=== PATIENT | female | born 1950 | race Caucasian/White ===

== ENCOUNTER 2018-10-02 08:22 | Inpatient (IN) | payer MEDICARE, MEDICAID ==
[2018-09-17 16:45] LABS: BASOPHILS % (AUTO) 0.6 % (0-1); EOSINOPHILS # (AUTO) 0.2 X10'3 (0-0.9); EOSINOPHILS % (AUTO) 3.4 % (0-6); LYMPHOCYTES # (AUTO) 1.1 X10'3 (1.1-4.8); LYMPHOCYTES % (AUTO) 16.2 % (21-51); MEAN CORPUSCULAR HEMOGLOBIN 32.2 PG (27.0-31.0); MEAN CORPUSCULAR HGB CONC 33.5 % (33.0-36.5); MEAN PLATELET VOLUME 6.8 FL (7.4-10.4); MONOCYTES # (AUTO) 0.5 X10'3 (0-0.9); MONOCYTES % (AUTO) 7.5 % (2-12); NEUTROPHILS # (AUTO) 4.9 X10'3 (1.8-7.7); NEUTROPHILS % (AUTO) 72.3 % (42-75); PRE OP HEMATOCRIT 34.6 % (35.0-45.0); PRE OP HEMOGLOBIN 11.6 g/dL (12.0-16.0); PRE OP PLATELET COUNT 225 X10'3 (140-440); RED BLOOD COUNT 3.61 X10'6 (4.20-5.60); RED CELL DISTRIBUTION WIDTH 14.5 % (11.5-14.5)
[2018-09-17 16:56] LABS: ALBUMIN 3.7 G/DL (3.4-5.0); ALBUMIN/GLOBULIN RATIO 0.8 (1.1-1.5); ALKALINE PHOSPHATASE 92 IU/L (46-116); BLOOD UREA NITROGEN 15 MG/DL (7-18); BUN/CREATININE RATIO 18.8 (6.6-38.0); CHLORIDE 99 MMOL/L (99-107); PRE OP ALT 16 U/L (30-65); PRE OP ANION GAP 13 (8-16); PRE OP AST 20 U/L (10-37); PRE OP BILIRUB, TOTAL 0.5 MG/DL (0.0-1.0); PRE OP GLUCOSE 107 MG/DL (70-104); PRE OP POTASSIUM 3.9 MMOL/L (3.4-5.1); PRE OP SODIUM 140 MMOL/L (135-145); TOTAL CARBON DIOXIDE 27.8 MMOL/L (24-32); TOTAL PROTEIN 8.1 G/DL (6.4-8.2); eGFR 72 ML/MIN
[2018-09-17 17:05] LABS: PRE OP PROTIME 10.1 SECONDS (9.0-12.0)
[~2018-10-02] VITALS: Ht 152.4 cm; Wt 56.5 kg
[2018-10-02] VITALS (18 sets, daily range): BP systolic 103–157; BP diastolic 43–80
[~2018-10-02 08:22] MED LIST: AMLO10TA PO; BUPR1PAT TOP; CALCIUM PO; CARV3.12 PO; CLOP75TA33 PO; DOCUMENT DATE & TIME OF BETA-BLOCKER PO ONE; FAMO-128 PO; KRIL1CAP PO; LACT1CAP65 PO; LISI40TA4 PO; LORA10TA7 PO; MULT-933 PO; PRAV10TA39 PO; SERT50TA PO; TRAZ150T78 PO; VANCOMYCIN INJ 1000 MG in NORMAL SALINE 250ml IV.SOLN IV ONE; acetaminophen 325mg tablet PO ONE; cefazolin/dext.iso 2gm/50ml 50 ML IV ONE; famotidine 20mg tablet PO ONE; gabapentin 300mg capsule PO ONE; metoclopramide 5 mg/ml inj IV ONE; oxyCODONE SR 10mg (sust. release) tab -2 tabs (20mg) PO ONE; ringers solution, lacted 1,000 ML IV SCH; tranexamic acid inj. 1,000 MG in normal saline 100ml IV soln 90 ML IV ONE
[2018-10-02] MEDS ORDERED: LIDOcaine 1% (10mg/ml) 2ml vial ONE (08:35)
[2018-10-02] MEDS ORDERED: vancomycin 1,000mg inj ONE (09:32)
[2018-10-02] MEDS ORDERED: ceFAZolin 1000mg inj ONE (09:32)
[2018-10-02] MEDS ORDERED: Thrombin (Bovine) 5,000 unit vial TP ONE (10:18)
[2018-10-02] MEDS ORDERED: calcium chloride 100 MG/1 ML inj IV ONE (10:19)
[2018-10-02] MEDS ORDERED: dexamethasone sod phosphate 10mg/ml inj ONE (10:56)
[2018-10-02] MEDS ORDERED: sevoflurane 250ml liquid IH ONE (10:56)
[2018-10-02] MEDS ORDERED: cloNIDine hcl/PF 100mcg/ml inj ONE (10:56)
[2018-10-02] MEDS ORDERED: ROPIVAcaine 0.5% (5mg/ml) 30ml vial ONE (10:56)
[2018-10-02] MEDS ORDERED: midazolam 2 mg/2 ml injection ONE (10:58)
[2018-10-02] MEDS ORDERED: propofol inj 20 ML IV ONE (10:58)
[2018-10-02] MEDS ORDERED: LIDOcaine 2% (20mg/ml) 5ml vial ONE (10:58)
[2018-10-02] MEDS ORDERED: fentaNYL/PF 50MCG/1 ML 2ML syringe ONE (10:58)
[2018-10-02] MEDS ORDERED: ondansetron/PF 4mg/2ml inj ONE (11:53)
[2018-10-02] MEDS ORDERED: ringers solution, lacted 1,000 ML IV SCH (12:17)
[2018-10-02] MEDS ORDERED: ROPIVACAINE HCL/PF PAIN PUMP 400 ML IJ SCH (12:17)
[2018-10-02] MEDS ORDERED: morphine 4 MG/ML inj SYRINge IV PRN ×2 (12:20)
[2018-10-02] MEDS ORDERED: enalaprilat dihydrate 2.5mg/2ml vial IV PRN (12:20)
[2018-10-02] MEDS ORDERED: ondansetron/PF 4mg/2ml inj IV PRN ×2 (12:20→13:30)
[2018-10-02] MEDS ORDERED: fentaNYL/PF 50MCG/1 ML 2ML syringe IV PRN ×2 (12:20)
[2018-10-02] MEDS ORDERED: hydrALAZINE 20mg/ml inj. IV PRN (12:20)
--- NOTE | 2018-10-02 13:00 | NUR ---
RECEIVED PATIENT FROM THE RECOVERY TEAM. VIC WATTERS GAVE ME REPORT, PATIENT IS ALERT AND ORIENTED AT TIME OF ARRIVAL BUT IN PAIN.
[2018-10-02] MEDS ORDERED: HYDROmorphone 1 mg/ml syringe IV PRN (13:30)
[2018-10-02] MEDS ORDERED: acetaminophen 325mg tablet PO PRN (13:30)
[2018-10-02] MEDS ORDERED: magnesium hydroxide 30ml (MOM) UD suspension PO PRN (13:30)
[2018-10-02] MEDS ORDERED: bisacodyl 10mg suppository rectal RC PRN (13:30)
[2018-10-02] MEDS ORDERED: diphenhydrAMINE 25mg capsule PO PRN ×2 (13:30)
--- NOTE | 2018-10-02 13:45 | NUR ---
Received from OR via BED , accompanied by Anesthesiologist DR HEIN and report given by Anesthesiolgist. PATIENT WAKING UP, NO S/S OF PAIN, V/S WNL, NEUROVASCULAR CHECKS INTACT. PIV 20G TO LUE , SCD ON, DRESSING TO RIGHT SHOULDER CDI WITH SLING AND COLD POWDER PACK AND ON QUE AT 8. F/C DRAINING CLEAR YELLOW URINE.
--- NOTE | 2018-10-02 14:35 | NUR ---
PATIENTA&OX4, DENIES PAIN, V/S WNL, NEUROVASCULAR CHECKS INTACT. PIV 20G TO MARIE , SCD ON, DRESSING TO RIGHT SHOULDER CDI WITH SLING AND COLD POWDER PACK AND ON QUE AT 8. F/C DRAINING CLEAR YELLOW URINE. TAKEN TO 4016 AND REOPORT GIVEN TO RONNY WATTERS WHO HAS TAKEN OVER PATIENT CARE AND TELE PLACED ON PATIENT
--- NOTE | 2018-10-02 15:00 | NUR ---
PATIENT WAS IN 8/10 PAIN AND I INCREASED THE QPUMP BY 2ML....IT CURRENTLY AT 10ML/HR NOW
[2018-10-02] MEDS: potassium cl 20mEq in 1/2 NS 1,000 ML IV SCH (15:15)
[2018-10-02] MEDS: acetaminophen 325mg tablet PO SCH ×2 (16:14→20:12)
[2018-10-02] MEDS: ceFAZolin 1GM/D5W- ADD-VANTAGE 50 ML IV SCH ×2 (16:14→23:13)
[2018-10-02] MEDS ORDERED: tranexamic acid inj. 570 MG in normal saline 100ml IV soln 100 ML IV ONE (16:30)
--- NOTE | 2018-10-02 18:20 | NUR ---
Received report from Fabiola WATTERS, assumed care of patient.
[2018-10-02] MEDS: oxyCODONE IR 5mg (immed. release) tablet PO PRN ×2 (19:19→23:13)
[2018-10-02] MEDS ORDERED: vancomycin/NS 1 GM ADD-VANTAGE 250 ML IV SCH (20:00)
--- NOTE | 2018-10-02 20:05 | NUR ---
Patient reports 8/10 pain to right shoulder. Q pump increased by 2ml as directed in order. Currently infusing at 12ml/hr. Will continue to monitor.
[2018-10-02] MEDS: carVEDilol 3.125mg tablet PO SCH (20:11)
[2018-10-02] MEDS: sertraline 50mg tablet PO SCH (20:12)
[2018-10-02] MEDS: atorvastatin 10mg tablet PO SCH (20:12)
[2018-10-02] MEDS: sennosides 8.6mg tablet PO SCH (20:12)
[2018-10-02] MEDS: gabapentin 300mg capsule PO SCH (20:12)
[2018-10-02] MEDS: traZODone 150mg tablet PO SCH (20:12)
[2018-10-03] VITALS (7 sets, daily range): BP systolic 121–150; BP diastolic 49–77
[2018-10-03] MEDS: acetaminophen 325mg tablet PO SCH ×2 (02:01→07:49)
[2018-10-03] MEDS: potassium cl 20mEq in 1/2 NS 1,000 ML IV SCH ×2 (02:02→07:45)
[2018-10-03] MEDS: oxyCODONE IR 5mg (immed. release) tablet PO PRN (05:36)
[2018-10-03] MEDS ORDERED: HYDR-4353 PO (06:00)
--- NOTE | 2018-10-03 06:10 | NUR ---
Patient in room [facility]TH[facility] 4016. I have received report from YASH WATTERS and had the opportunity to ask questions and assume patient care.
--- NOTE | 2018-10-03 06:11 | NUR ---
Report given to Phyllis WATTERS.
--- NOTE | 2018-10-03 06:34 | NUR ---
Report given to Pyhllis WATTERS.
--- NOTE | 2018-10-03 06:59 | NUR ---
PATIENT REPORTS PAIN 8/10, INCREASED ON-Q TO 14ML/HR PER ORDERS,WILL CONTINUE TO MONITOR.
[2018-10-03 07:00] LABS: BASOPHILS % (AUTO) 0.2 % (0-1); EOSINOPHILS % (AUTO) 0 % (0-6); HEMATOCRIT 29.4 % (35.0-45.0); HEMOGLOBIN 10.1 g/dl (12.0-16.0); LYMPHOCYTES # (AUTO) 0.4 X10'3 (1.1-4.8); LYMPHOCYTES % (AUTO) 4.8 % (21-51); MEAN CORPUSCULAR HEMOGLOBIN 33.3 PG (27.0-31.0); MEAN CORPUSCULAR HGB CONC 34.4 % (33.0-36.5); MEAN CORPUSCULAR VOLUME 96.8 FL (78-98); MEAN PLATELET VOLUME 7.6 FL (7.4-10.4); MONOCYTES # (AUTO) 0.7 X10'3 (0-0.9); MONOCYTES % (AUTO) 8.4 % (2-12); NEUTROPHILS # (AUTO) 7.2 X10'3 (1.8-7.7); NEUTROPHILS % (AUTO) 86.6 % (42-75); PLATELET COUNT 144 X10'3 (140-440); RED BLOOD COUNT 3.03 X10'6 (4.20-5.60); RED CELL DISTRIBUTION WIDTH 13.4 % (11.5-14.5); WHITE BLOOD COUNT 8.3 X10'3 (4.5-11.0)
[2018-10-03 07:02] LABS: ANION GAP 9 (8-16); CHLORIDE 104 MMOL/L (99-107); POTASSIUM 3.9 MMOL/L (3.5-5.1); SODIUM 139 MMOL/L (135-145); TOTAL CARBON DIOXIDE 25.8 MMOL/L (24-32)
[2018-10-03] MEDS ORDERED: oxyCODONE/APAP 10/325mg tablet PO PRN (07:25)
[2018-10-03] MEDS: loratadine 10mg tablet PO SCH (07:50)
[2018-10-03] MEDS: multivitamins, therapeutics tablet PO SCH (07:53)
[2018-10-03] MEDS: calcium carbonate 500mg tablet PO SCH (07:53)
[2018-10-03] MEDS: gabapentin 300mg capsule PO SCH ×3 (07:53→20:20)
[2018-10-03] MEDS: clopidogrel 75mg tablet PO SCH (07:53)
[2018-10-03] MEDS: famotidine 20mg tablet PO SCH (07:53)
[2018-10-03] MEDS: sertraline 50mg tablet PO SCH ×2 (07:54→20:21)
[2018-10-03] MEDS: oxyCODONE/APAP 10/325mg tablet PO PRN ×4 (07:55→20:22)
[2018-10-03] MEDS: carVEDilol 3.125mg tablet PO SCH ×2 (07:55→20:21)
[2018-10-03] MEDS: lactobacillus rhamnosus 10,000 MMU CELLS/CAPSULE PO SCH (07:55)
[2018-10-03] MEDS: lisinopril 20mg tablet PO SCH (07:55)
[2018-10-03] MEDS: amLODIPine 5mg tablet PO SCH (07:55)
[2018-10-03] MEDS ORDERED: aspirin 325mg tablet PO SCH (08:30)
[2018-10-03] MEDS ORDERED: BUTRANS 15 MCG/HR TP SCH (09:00)
--- NOTE | 2018-10-03 11:30 | NUR ---
PATIENT WANTS TO STAY ANOTHER NIGHT UNTIL SHE IS MORE STABLE ON HER FEET. CONSTANCE FRAIRE IS AWARE AND OKAY WITH DC HOME TOMORROW.
--- NOTE | 2018-10-03 18:13 | NUR ---
Problems reprioritized. Patient report given, questions answered & plan of care reviewed with SRIDEVI WATTERS.
--- NOTE | 2018-10-03 18:17 | NUR ---
Patient in room [facility]TH[facility] 4016. I have received report from DUONG Ferguson and had the opportunity to ask questions and assume patient care.
[2018-10-03] MEDS: atorvastatin 10mg tablet PO SCH (20:20)
[2018-10-03] MEDS: sennosides 8.6mg tablet PO SCH (20:21)
[2018-10-03] MEDS: traZODone 150mg tablet PO SCH (21:20)
[2018-10-04] MEDS: oxyCODONE/APAP 10/325mg tablet PO PRN ×5 (02:30→19:00)
[2018-10-04 06:00] VITALS: BP_SYST 130; BP_SYST 135; BP_DIAS 53; BP_DIAS 76
[2018-10-04 06:33] LABS: BASOPHILS % (AUTO) 0.4 % (0-1); EOSINOPHILS # (AUTO) 0.1 X10'3 (0-0.9); EOSINOPHILS % (AUTO) 1.9 % (0-6); HEMATOCRIT 26.3 % (35.0-45.0); HEMOGLOBIN 8.9 g/dl (12.0-16.0); LYMPHOCYTES # (AUTO) 0.8 X10'3 (1.1-4.8); LYMPHOCYTES % (AUTO) 12.3 % (21-51); MEAN CORPUSCULAR HEMOGLOBIN 33.1 PG (27.0-31.0); MEAN CORPUSCULAR HGB CONC 33.8 % (33.0-36.5); MEAN CORPUSCULAR VOLUME 97.8 FL (78-98); MEAN PLATELET VOLUME 7.4 FL (7.4-10.4); MONOCYTES # (AUTO) 0.5 X10'3 (0-0.9); MONOCYTES % (AUTO) 7.8 % (2-12); NEUTROPHILS # (AUTO) 4.9 X10'3 (1.8-7.7); NEUTROPHILS % (AUTO) 77.6 % (42-75); PLATELET COUNT 115 X10'3 (140-440); RED BLOOD COUNT 2.69 X10'6 (4.20-5.60); RED CELL DISTRIBUTION WIDTH 13.9 % (11.5-14.5); WHITE BLOOD COUNT 6.3 X10'3 (4.5-11.0)
--- NOTE | 2018-10-04 06:36 | NUR ---
Problems reprioritized. Patient report given, questions answered & plan of care reviewed with DUONG Mendoza.
[2018-10-04] MEDS: lisinopril 20mg tablet PO SCH (08:00)
[2018-10-04] MEDS: amLODIPine 5mg tablet PO SCH (08:00)
[2018-10-04] MEDS: loratadine 10mg tablet PO SCH (08:05)
[2018-10-04] MEDS: gabapentin 300mg capsule PO SCH ×2 (08:05→14:58)
[2018-10-04] MEDS: lactobacillus rhamnosus 10,000 MMU CELLS/CAPSULE PO SCH (08:05)
[2018-10-04] MEDS: carVEDilol 3.125mg tablet PO SCH (08:05)
[2018-10-04] MEDS: famotidine 20mg tablet PO SCH (08:06)
[2018-10-04] MEDS: clopidogrel 75mg tablet PO SCH (08:06)
[2018-10-04] MEDS: calcium carbonate 500mg tablet PO SCH (08:06)
[2018-10-04] MEDS: multivitamins, therapeutics tablet PO SCH (08:06)
[2018-10-04] MEDS: sertraline 50mg tablet PO SCH (08:06)
[2018-10-04 10:00] VITALS: BP 133/40
[2018-10-04] MEDS ORDERED: acetaminophen 325mg tablet PO PRN (13:30)
[2018-10-04 18:00] VITALS: BP 132/102
--- NOTE | 2018-10-04 18:30 | NUR ---
Patient in room [facility]TH[facility] 4016. I have received report from DUONG Mendoza and had the opportunity to ask questions and assume patient care.
--- NOTE | 2018-10-04 19:03 | NUR ---
Pt.discharge home,instructions was given to pt.She went home with her son.
== END 2018-10-04 19:00 | disposition home or self-care (01) | DRG 483 ==
LOC: PAS IN 08:22 → EDSTATUS 10:30 → ORTHO 4S 14:45
PROVIDERS: ADMIT Orthopaedic Surgery; ATTEND Orthopaedic Surgery
PROC: 3E0T3BZ Introduction of Anesthetic Agent into Peripheral Nerves and Plexi, Percutaneous Approach (ICD-10-PCS; 2018-10-02)
PROC: 0RRJ00Z Replacement of Right Shoulder Joint with Reverse Ball and Socket Synthetic Substitute, Open Approach (ICD-10-PCS; principal; 2018-10-02 10:59)
DX: M19.011 Primary osteoarthritis, right shoulder (principal); M06.9 Rheumatoid arthritis, unspecified; M75.101 Unspecified rotator cuff tear or rupture of right shoulder, not specified as traumatic; K21.9 Gastro-esophageal reflux disease without esophagitis; E78.5 Hyperlipidemia, unspecified; G89.29 Other chronic pain; I10 Essential (primary) hypertension; M81.0 Age-related osteoporosis without current pathological fracture; D64.9 Anemia, unspecified; F32.9 Major depressive disorder, single episode, unspecified; Z90.13 Acquired absence of bilateral breasts and nipples; Z88.5 Allergy status to narcotic agent; Z88.2 Allergy status to sulfonamides; Z79.02 Long term (current) use of antithrombotics/antiplatelets; Z79.899 Other long term (current) drug therapy; Z86.718 Personal history of other venous thrombosis and embolism; Z85.3 Personal history of malignant neoplasm of breast
CPT/HCPCS: 36415; 71046; 80051; 80053; 85025; 85610; 85730; 87070; 97110; 97116; 97161; 97530; A4565; A7000; C1758; G0378; J0690; J0735; J1100; J2001; J2250; J2405; J2704; J2765; J2795; J3010; J3370; J3490; J7030; J7120

== ENCOUNTER 2022-06-27 16:53 | Emergency (ER) | payer MEDICARE, MEDICAID ==
[~2022-06-27] VITALS: Ht 156.2 cm; Wt 46.8 kg
[~2022-06-27 16:53] MED LIST changes: -DOCUMENT DATE & TIME OF BETA-BLOCKER PO ONE; +LISI40TA13 PO; -LISI40TA4 PO; -VANCOMYCIN INJ 1000 MG in NORMAL SALINE 250ml IV.SOLN IV ONE; -acetaminophen 325mg tablet PO ONE; -cefazolin/dext.iso 2gm/50ml 50 ML IV ONE; -famotidine 20mg tablet PO ONE; -gabapentin 300mg capsule PO ONE; -metoclopramide 5 mg/ml inj IV ONE; -oxyCODONE SR 10mg (sust. release) tab -2 tabs (20mg) PO ONE; -ringers solution, lacted 1,000 ML IV SCH; -tranexamic acid inj. 1,000 MG in normal saline 100ml IV soln 90 ML IV ONE
[2022-06-27] MEDS ORDERED: ondansetron/PF 4mg/2ml inj IV ONE (17:25)
[2022-06-27] MEDS ORDERED: normal saline 1000ML IV soln IVB ONE (17:25)
[2022-06-27 17:53] LABS: BASOPHILS # (AUTO) 0.1 X10'3 (0-0.2); BASOPHILS % (AUTO) 0.4 % (0-1); EOSINOPHILS # (AUTO) 0.3 X10'3 (0-0.9); EOSINOPHILS % (AUTO) 2.9 % (0-6); HEMATOCRIT 30.5 % (35.0-45.0); HEMOGLOBIN 10.2 g/dl (12.0-16.0); LYMPHOCYTES # (AUTO) 2.1 X10'3 (1.1-4.8); LYMPHOCYTES % (AUTO) 18.4 % (21-51); MEAN CORPUSCULAR HEMOGLOBIN 28.4 PG (27.0-31.0); MEAN CORPUSCULAR HGB CONC 33.4 g/dL (33.0-36.5); MEAN CORPUSCULAR VOLUME 85.1 FL (78-98); MONOCYTES # (AUTO) 0.9 X10'3 (0-0.9); MONOCYTES % (AUTO) 7.4 % (2-12); NEUTROPHILS # (AUTO) 8.2 X10'3 (1.8-7.7); NEUTROPHILS % (AUTO) 70.9 % (42-75); PLATELET COUNT 329 X10'3 (140-440); RED BLOOD COUNT 3.58 X10'6 (4.20-5.60); WHITE BLOOD COUNT 11.6 X10'3 (4.5-11.0)
[2022-06-27 17:58] LABS: ALANINE AMINOTRANSFERASE 17 U/L (12-78); ALBUMIN 2.9 G/DL (3.4-5.0); ALBUMIN/GLOBULIN RATIO 0.7 (1.1-1.5); ALKALINE PHOSPHATASE 74 IU/L (46-116); ANION GAP 9 (8-16); ASPARTATE AMINO TRANSFERASE 21 U/L (10-37); BILIRUBIN,TOTAL 0.5 MG/DL (0.1-1.0); BLOOD UREA NITROGEN 24 MG/DL (7-18); BUN/CREATININE RATIO 23.8 (6.6-38.0); CALCIUM 8.6 MG/DL (8.5-10.1); CHLORIDE 96 MMOL/L (99-107); CREATININE 1.01 MG/DL (0.40-0.90); GLUCOSE 107 MG/DL (70-104); LIPASE < 50 U/L (73-393); MAGNESIUM 1.7 MG/DL (1.5-2.4); SODIUM 135 MMOL/L (135-145); TOTAL CARBON DIOXIDE 29.7 MMOL/L (24-32); eGFR 54 ML/MIN
[2022-06-27 18:06] LABS: POTASSIUM 2.7 MMOL/L (3.5-5.1)
[2022-06-27] MEDS ORDERED: potassium CL 10mEq/100ml bag 100 ML IV ONE (18:10)
[2022-06-27] MEDS ORDERED: potassium Cl 20 mEq SR tablet PO STA (18:14)
[2022-06-27] MEDS ORDERED: CefTRIAXone 2gm/D5W 50ml BAG 50 ML IV ONE (18:30)
--- NOTE | 2022-06-27 18:52 | NUR ---
Patient resting comfortably on gurney, reports she has been unable to urinate in 24hrs. I will bladder scan the patient.
[2022-06-27] MEDS ORDERED: CEPH-585 PO (19:01)
[2022-06-27] MEDS ORDERED: POTA-197 PO (19:01)
[2022-06-27] MEDS ORDERED: ONDA4TAB12 PO (19:01)
--- NOTE | 2022-06-27 19:07 | NUR ---
Went to bladder scan patient and she tells me she is incontinent and has already urinated. A bladder scan was done anyway and showed 56mL
[2022-06-27 20:29] VITALS: BP 139/60
== END 2022-06-27 20:33 | disposition home or self-care (01) ==
LOC: ER 16:53
DX: E86.0 Dehydration (principal); N39.0 Urinary tract infection, site not specified; R42 Dizziness and giddiness; J44.9 Chronic obstructive pulmonary disease, unspecified; Z88.2 Allergy status to sulfonamides; Z98.890 Other specified postprocedural states; Z90.49 Acquired absence of other specified parts of digestive tract
CPT/HCPCS: 36415; 71045; 80053; 83690; 83735; 84145; 85025; 96361; 96365; 96367; 96375; 99284; J0696; J2405; J3480; J7030; A4353

== ENCOUNTER 2023-01-24 09:37 | Emergency (ER) | payer MEDICARE, MEDICAID ==
[~2023-01-24] VITALS: Ht 157.5 cm; Wt 45.5 kg
[~2023-01-24 09:37] MED LIST changes: +CEPH-585 PO; +ONDA4TAB12 PO; +POTA-197 PO
[2023-01-24 09:52] VITALS: BP 150/61
[2023-01-24] MEDS ORDERED: ATI1T PO (14:18)
[2023-01-24] MEDS ORDERED: OXYC-150 PO (14:18)
[2023-01-24] MEDS ORDERED: oxyCODONE/APAP 10/325mg tablet PO ONE (14:20)
[2023-01-24] MEDS ORDERED: LORazepam 1 MG tablet PO ONE (14:20)
== END 2023-01-24 14:38 | disposition home or self-care (01) ==
LOC: ER 09:37
DX: F41.9 Anxiety disorder, unspecified (principal); M19.90 Unspecified osteoarthritis, unspecified site; G89.29 Other chronic pain; R19.7 Diarrhea, unspecified; J44.9 Chronic obstructive pulmonary disease, unspecified; Z90.49 Acquired absence of other specified parts of digestive tract; Z88.2 Allergy status to sulfonamides; Z88.6 Allergy status to analgesic agent; Z88.5 Allergy status to narcotic agent; Z79.899 Other long term (current) drug therapy
CPT/HCPCS: 99283

== ENCOUNTER 2023-03-27 11:51 | Emergency (ER) | payer MEDICARE, MEDICAID ==
[~2023-03-27] VITALS: Ht 157.5 cm; Wt 47.7 kg
[~2023-03-27 11:51] MED LIST changes: -BUPR1PAT TOP; -CALCIUM PO; -CARV3.12 PO; -CEPH-585 PO; -CLOP75TA33 PO; -FAMO-128 PO; +FLUT1BLS4 IH; -KRIL1CAP PO; +LACT1CAP26 PO; -LACT1CAP65 PO; -LISI40TA13 PO; +Lorazepam PO; +MORP15TA60 PO; -ONDA4TAB12 PO; +OXYC-150 PO; -POTA-197 PO; +POTA-207 PO; -PRAV10TA39 PO; +PRED20TA PO; +SERT-433 PO; -SERT50TA PO; +TIOT18CA3 INH
[2023-03-27] MEDS ORDERED: oxyCODONE/APAP 10/325mg tablet PO ONE (14:10)
[2023-03-27 14:32] VITALS: BP 181/82
[2023-03-27] MEDS ORDERED: OXYC-150 PO (14:36)
[2023-03-27] MEDS ORDERED: DICL100G30 TOP (14:36)
[2023-03-27] MEDS ORDERED: NALO4SPR BOTHNARES (14:38)
== END 2023-03-27 15:31 | disposition home or self-care (01) ==
LOC: ER 11:51
DX: M13.89 Other specified arthritis, multiple sites (principal); J44.9 Chronic obstructive pulmonary disease, unspecified; I10 Essential (primary) hypertension; Z90.49 Acquired absence of other specified parts of digestive tract; Z98.890 Other specified postprocedural states; Z88.2 Allergy status to sulfonamides; Z88.6 Allergy status to analgesic agent; Z88.5 Allergy status to narcotic agent; Z79.899 Other long term (current) drug therapy; Z79.1 Long term (current) use of non-steroidal anti-inflammatories (NSAID); Z79.2 Long term (current) use of antibiotics
CPT/HCPCS: 99284

== ENCOUNTER 2023-04-02 18:06 | Emergency (ER) | payer MEDICARE, MEDICAID ==
[~2023-04-02] VITALS: Ht 157.5 cm; Wt 47.7 kg
[~2023-04-02 18:06] MED LIST changes: +DICL100G30 TOP; +NALO4SPR BOTHNARES
[2023-04-02 18:27] VITALS: BP 143/65
--- NOTE | 2023-04-02 19:10 | NUR ---
Patient had registration help her get an ub[employer], says she is not waiting around if she can't get help.
--- NOTE | 2023-04-02 19:15 | NUR ---
Patient waiting outside for [employer], she left belongings and I took them to her. I asked why she was leaving and she said "because you are not going to treat me". I advised her that was not true, as soon as there was a room we would see her and address her concerns. She said no.
== END 2023-04-02 19:21 | disposition left against medical advice (07) ==
LOC: ER 18:07
DX: M25.551 Pain in right hip (principal); M79.674 Pain in right toe(s); Z53.21 Procedure and treatment not carried out due to patient leaving prior to being seen by health care provider; W19.XXXA Unspecified fall, initial encounter; Y93.89 Activity, other specified; Y92.89 Other specified places as the place of occurrence of the external cause; Y99.8 Other external cause status
CPT/HCPCS: 99281

== ENCOUNTER 2023-04-13 17:13 | Emergency (ER) | payer MEDICARE, MEDICAID ==
[~2023-04-13] VITALS: Ht 154.9 cm; Wt 47.7 kg
[2023-04-13 19:23] VITALS: BP 178/79
== END 2023-04-13 20:57 | disposition home or self-care (01) ==
LOC: ER 17:13
DX: Z00.00 Encounter for general adult medical examination without abnormal findings (principal); F41.9 Anxiety disorder, unspecified; R06.02 Shortness of breath; M06.9 Rheumatoid arthritis, unspecified; I10 Essential (primary) hypertension; J44.9 Chronic obstructive pulmonary disease, unspecified; Z88.2 Allergy status to sulfonamides; Z88.5 Allergy status to narcotic agent; Z88.6 Allergy status to analgesic agent; Z90.49 Acquired absence of other specified parts of digestive tract; Z90.710 Acquired absence of both cervix and uterus
CPT/HCPCS: 99284